=== PATIENT | female | born 1970 | race Caucasian/White ===

== ENCOUNTER 2019-04-30 18:42 | Emergency (ER) | payer OTHER ==
[~2019-04-30] VITALS: Ht 177.8 cm; Wt 68.0 kg
--- NOTE | 2019-04-30 19:19 | NUR ---
Patient ambulated with stable gait. A/Ox4. Speech is clear, speaks in complete sentences. No acute neuro deficits. Patient came for c/o a syncopal episode around 1400, patient fainted and was assisted by another personnel to the floor. 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 Respiratory even and unlabored, no cough no sob. Denies any n/v/d. Patient in bed at lowest position, sr upx2, call light within reach. Fall precautions implemented per protocol. Facility [facility] accompanying patient bedside.
--- NOTE | 2019-04-30 19:22 | NUR ---
Patient transported to CT in stable condition.
--- NOTE | 2019-04-30 19:45 | NUR ---
Patient discharged to home in stable conditon. Written and verbal after care instructions given. Patient verbalizes understanding of instructions. Patient ambulated with stable gait.
[2019-04-30 20:16] VITALS: BP 110/81
== END 2019-04-30 20:17 | disposition home or self-care (01) ==
LOC: ER 18:50
DX: Z00.00 Encounter for general adult medical examination without abnormal findings (principal); R55 Syncope and collapse
CPT/HCPCS: 70450; A4663

== ENCOUNTER 2019-05-06 16:44 | Emergency (ER) | payer OTHER ==
[~2019-05-06] VITALS: Ht 177.8 cm; Wt 68.0 kg
[2019-05-06] MEDS ORDERED: PROP20TA7 PO (17:23)
[2019-05-06] MEDS ORDERED: QUET200T PO (17:23)
[2019-05-06] MEDS ORDERED: METO-357 PO (17:23)
[2019-05-06] MEDS ORDERED: GABA-534 PO (17:23)
[2019-05-06] MEDS ORDERED: RANI-655 PO (17:23)
[2019-05-06] MEDS ORDERED: AMIT50TA17 PO (17:23)
[2019-05-06] MEDS ORDERED: ARIP10TA9 PO (17:23)
[2019-05-06] MEDS ORDERED: NALT50TA PO (17:23)
[2019-05-06] MEDS ORDERED: CLIN300C11 PO (17:23)
[2019-05-06] MEDS ORDERED: QUET25TA PO (17:23)
--- NOTE | 2019-05-06 18:33 | NUR ---
Dr. Dickinson at bedside to examine patient.
[2019-05-06] MEDS ORDERED: HYDROMORPHONE 1 MG/1 ML DISP.SYRIN IM ONE ×2 (18:45→19:15)
[2019-05-06] MEDS ORDERED: ONDANSETRON 4 MG/2 ML VIAL IM ONE ×2 (18:45→19:15)
[2019-05-06] MEDS ORDERED: HYDROMORPHONE 2 MG/1 ML DISP.SYRIN ONE ×2 (18:50→19:24)
[2019-05-06] MEDS ORDERED: ONDANSETRON 4 MG/2 ML VIAL ONE ×2 (18:50→19:24)
--- NOTE | 2019-05-06 19:10 | NUR ---
bedside report given to rn. Olivia
[2019-05-06] MEDS ORDERED: LIDOCAINE HCL 2% 20 ML VIAL TP ONE (19:15)
--- NOTE | 2019-05-06 19:54 | NUR ---
Patient discharged to home in stable conditon. Written and verbal after care instructions given. Patient verbalizes understanding of instructions. Pt walked out of ER in stable gait with staff from sober living facility. Pt appears in no apparent distress. Vital signs stable. Respirations even + unlabored.
[2019-05-06 19:55] VITALS: BP 121/64
== END 2019-05-06 19:58 | disposition home or self-care (01) ==
LOC: ER 16:44
DX: L02.214 Cutaneous abscess of groin (principal); Z79.899 Other long term (current) drug therapy; Z79.2 Long term (current) use of antibiotics
CPT/HCPCS: 10060; 96372 ×4; 99283; J1170 ×2; J2405 ×2; A4663

== ENCOUNTER 2019-05-09 11:55 | Emergency (ER) | payer OTHER ==
[~2019-05-09] VITALS: Ht 177.8 cm; Wt 68.0 kg
[~2019-05-09 11:55] MED LIST: AMIT50TA17 PO; ARIP10TA9 PO; CLIN300C11 PO; GABA-534 PO; METO-357 PO; NALT50TA PO; PROP20TA7 PO; QUET200T PO; QUET25TA PO; RANI-655 PO
[2019-05-09] MEDS ORDERED: NEOMY/BACITRA/POLYMYXIN B OINT UD PACKET TP ONE ×2 (12:19→12:30)
--- NOTE | 2019-05-09 12:23 | NUR ---
Patient discharged to home in stable conditon & brisk steady gait. Written and verbal after care instructions given to patient. Patient verbalizes understanding of instructions.
== END 2019-05-09 12:23 | disposition home or self-care (01) ==
LOC: ER 11:55
DX: Z48.01 Encounter for change or removal of surgical wound dressing (principal); Z79.899 Other long term (current) drug therapy; Z79.2 Long term (current) use of antibiotics
CPT/HCPCS: A4663